=== PATIENT | male | born 1940 | race African-American/Black ===

== ENCOUNTER 2022-09-02 03:40 | Emergency (ER) | payer OTHER ==
[2022-09-02 04:02] VITALS: BMI 26.6
[2022-09-02] MEDS ORDERED: ACETAMINOPHEN 1000 MG/100 ML BAG IVPB ONE (07:20)
[2022-09-02 08:11] LABS: HEMATOCRIT 31.4 % (35.4-49); HEMOGLOBIN 9.2 GM/dL (11.7-16.9); MCH 22.7 pg (25.7-33.7); MCHC 29.2 g/dl (32.0-35.9); MEAN CELL VOLUME 77.9 fl (80-96); MEAN PLT VOLUME 10.5 fl (7.5-11.1); RBC 4.03 M/mm3 (4.00-5.60); RDW 20.1 % (11.9-15.9); WHITE BLOOD COUNT 16.9 K/mm3 (4.0-10.0)
[2022-09-02 08:16] LABS: INR 1.48 (0.83-1.09); PROTHROMBIN TIME (PATIENT) 17.1 SEC (9.7-13.0)
[2022-09-02 08:19] LABS: ACTIVATED PTT 35.9 SECONDS (25.2-36.5)
[2022-09-02 08:25] LABS: ALBUMIN 1.7 g/dl (3.4-5.0); CALCIUM 9.1 mg/dL (8.5-10.1)
[2022-09-02 08:27] LABS: BLOOD UREA NITROGEN 35.5 mg/dL (7-18); MAGNESIUM 1.7 mg/dL (1.8-2.4)
[2022-09-02 08:29] LABS: CREATININE 2.8 mg/dL (0.55-1.3)
[2022-09-02 08:31] LABS: TOT PROT 4.6 g/dl (6.4-8.2)
[2022-09-02] MEDS ORDERED: ACETAMINOPHEN INJECTION 100 ML IVPB ONE (08:45)
[2022-09-02 09:05] LABS: PLATELET COUNT 21 10^3/uL (134-434)
[2022-09-02 09:07] LABS: ANISOCYTOSIS 2+; MACROCYTOSIS 0
[2022-09-02] MEDS ORDERED: MAGNESIUM SULF 50% (8.12 MEQ/2 ML-1 GM VIAL) IVPB ONE (09:23)
[2022-09-02] MEDS ORDERED: ALBUMIN HUMAN 25% 12.5 GM/50 ML VIAL IV ONE (09:30)
[2022-09-02] MEDS ORDERED: MAGNESIUM SULFATE IN WATER 2 GM/50 ML IVPB IVPB ONE (09:57)
[2022-09-02] MEDS ORDERED: CEFEPIME HCL/D5W 1 GM/50 ML BAG IVPB ONE (10:49)
[2022-09-02] MEDS ORDERED: VANCOMYCIN/WATER 1,250 MG/250 ML BAG (RESTRICTED TO ID ONLY) IVPB ONE (10:49)
[2022-09-02] MEDS ORDERED: TRIPLE LUMEN FLUSH 4 ML ML IVPUSH PRN (14:04)
[2022-09-02] MEDS ORDERED: DEXTROSE 5% IVPB ONE (14:45)
[2022-09-02] MEDS ORDERED: CEFEPIME IVPB ONE (14:45)
[2022-09-02] MEDS ORDERED: WATER IVPB ONE (14:45)
[2022-09-02] MEDS ORDERED: CEFEPIME 1 GM in DEXTROSE 5%-WATER - 50 ML IVPB ONE (17:00)
[2022-09-02] MEDS ORDERED: CEFEPIME 1 GM in DEXTROSE 5%-WATER 100 ML IVPB ONE (17:13)
[2022-09-02] MEDS ORDERED: CEFEPIME 1 GM/100 ML BAG IVPB ONE (19:38)
[2022-09-02 20:10] LABS: HEMATOCRIT 25.8 % (35.4-49); HEMOGLOBIN 7.6 GM/dL (11.7-16.9); MCH 22.7 pg (25.7-33.7); MCHC 29.6 g/dl (32.0-35.9); MEAN CELL VOLUME 76.9 fl (80-96); MEAN PLT VOLUME 10.5 fl (7.5-11.1); RBC 3.35 M/mm3 (4.00-5.60); RDW 19.7 % (11.9-15.9); WHITE BLOOD COUNT 14.9 K/mm3 (4.0-10.0)
[2022-09-02 20:21] LABS: INR 1.72 (0.83-1.09); PROTHROMBIN TIME (PATIENT) 19.9 SEC (9.7-13.0)
[2022-09-02 20:24] LABS: ACTIVATED PTT 42.5 SECONDS (25.2-36.5)
[2022-09-02 20:34] LABS: CALCIUM 8.7 mg/dL (8.5-10.1)
[2022-09-02 20:35] LABS: ALBUMIN 1.6 g/dl (3.4-5.0); BLOOD UREA NITROGEN 36.7 mg/dL (7-18); MAGNESIUM 1.8 mg/dL (1.8-2.4)
[2022-09-02 20:38] LABS: CREATININE 2.6 mg/dL (0.55-1.3); PHOSPHOROUS 2.2 mg/dL (2.5-4.9)
[2022-09-02 20:39] LABS: BILIRUBIN,TOTAL 1.3 mg/dL (0.2-1)
[2022-09-02 20:40] LABS: TOT PROT 4.2 g/dl (6.4-8.2)
[2022-09-02 20:53] LABS: PLATELET COUNT 19 10^3/uL (134-434)
[2022-09-02 21:59] LABS: ANISOCYTOSIS 1+; MACROCYTOSIS 1+; OVALOCYTE 1+
[2022-09-02 22:01] LABS: TOXIC GRANULATION 1+
[2022-09-02 23:40] VITALS: PULSE 103; TEMP 97.5
[2022-09-03] MEDS ORDERED: LIDOCAINE HCL/PF 1% SDV 5ML VIAL ONE (00:04)
[2022-09-03] MEDS ORDERED: NOREPINEPHRINE BITARTRATE/D5W 8 MG/250 ML BAG IVPB ONE (00:05)
[2022-09-03] MEDS ORDERED: NOREPINEPHRINE BITARTRATE/D5W 8 MG/250 ML BAG IVPB SCH (01:45)
[2022-09-03 03:39] VITALS: BP 87/58; RESP 20
== END 2022-09-03 03:30 | disposition short-term general hospital (02) ==
LOC: JER 03:40
PROC: 3E033GC Introduction of Other Therapeutic Substance into Peripheral Vein, Percutaneous Approach (ICD-10-PCS; principal; 2022-09-02)
DX: A41.9 Sepsis, unspecified organism (principal); R11.10 Vomiting, unspecified; I48.91 Unspecified atrial fibrillation; D69.6 Thrombocytopenia, unspecified
CPT/HCPCS: 0241U-QW; 36415; 36430; 36511; 36556; 71045-TC-FY; 71250-TC; 74176-TC; 77001-TC-FY; 80053; 82550; 83605; 83735; 83880; 84100; 84484; 85025; 85610; 85730; 86850; 86900; 86901; 87040; 87186; 93005; 93010; 99291; 99292; C1751; P9034; P9038; P9047